=== PATIENT | female | born 1995 | race Caucasian/White ===

== ENCOUNTER → 2020-06-24 | Outpatient (CLI) | payer OTHER ==
[~2020-06-24] MED LIST: CYCLOBENZAPRINE10 MG PO; NAPROSYN500 MG PO
== END ==
LOC: LAB 12:08
DX: E28.2 Polycystic ovarian syndrome (principal)
CPT/HCPCS: 36415; 84144

== ENCOUNTER 2020-10-13 21:02 | Emergency (ER) | payer OTHER ==
[2020-10-13] MEDS ORDERED: CYCLOBENZAPRINE10 MG PO (22:10)
[2020-10-13] MEDS ORDERED: NAPROSYN500 MG PO (22:10)
== END 2020-10-13 22:16 | disposition home or self-care (01) ==
LOC: ER1 21:02
DX: M54.2 Cervicalgia (principal); F17.200 Nicotine dependence, unspecified, uncomplicated
CPT/HCPCS: 96372; 99283; J1885

== ENCOUNTER 2021-02-05 19:55 | Emergency (ER) | payer OTHER ==
[2021-02-05] MEDS ORDERED: AMOXICILLIN500 MG PO (20:42)
== END 2021-02-05 21:04 | disposition home or self-care (01) ==
LOC: ER1 19:55
DX: H66.92 Otitis media, unspecified, left ear (principal); F17.210 Nicotine dependence, cigarettes, uncomplicated
CPT/HCPCS: 99282

== ENCOUNTER 2021-03-01 08:20 | Emergency (ER) | payer OTHER ==
[~2021-03-01] VITALS: Ht 177.8 cm; Wt 104.3 kg
[~2021-03-01 08:20] MED LIST changes: +AMOXICILLIN500 MG PO
[2021-03-01 09:17] LABS: HEMOGLOBIN 16.8 gm/dl (12.3-15.3); RED BLOOD COUNT 5.58 M/UL (4.00-5.10); WHITE BLOOD COUNT 17.8 K/UL (4.5-11.0)
[2021-03-01 10:01] LABS: BUN/CREATININE RATIO 14 (0-10)
[2021-03-01] MEDS ORDERED: AUGMENTIN 875-1 EACH PO (13:04)
[2021-03-01] MEDS ORDERED: ZOFRAN ODT 4 MG4 MG SL (13:04)
== END 2021-03-01 14:07 | disposition home or self-care (01) ==
LOC: ER1 08:20 → CDU 11:54 → ER1 14:07
DX: U07.1 COVID-19 (principal); K35.80 Unspecified acute appendicitis; F17.200 Nicotine dependence, unspecified, uncomplicated
CPT/HCPCS: 80053; 81001; 83690; 84703; 85025; 96365; 96367; 96374; 96375; 99284; J0696; J1885; J2405; Q9967; U0002

== ENCOUNTER 2021-05-17 07:50 | Emergency (ER) | payer OTHER ==
[~2021-05-17 07:50] MED LIST changes: +AUGMENTIN 875-1 EACH PO; +ZOFRAN ODT 4 MG4 MG SL
[2021-05-17 08:33] LABS: HEMOGLOBIN 15.2 gm/dl (12.3-15.3); RED BLOOD COUNT 5.18 M/UL (4.00-5.10); WHITE BLOOD COUNT 9.7 K/UL (4.5-11.0)
[2021-05-17 08:56] LABS: BUN/CREATININE RATIO 12 (0-10)
[2021-05-17] MEDS ORDERED: AUGMENTIN 875-1 EACH PO (12:40)
[2021-05-17] MEDS ORDERED: HYDROCODON-ACE1 EAC4 PO (12:44)
== END 2021-05-17 13:43 | disposition home or self-care (01) ==
LOC: ER1 07:50
PROVIDERS: Nurse Practitioner
DX: K35.80 Unspecified acute appendicitis (principal); F17.290 Nicotine dependence, other tobacco product, uncomplicated
CPT/HCPCS: 80053; 81001; 82150; 83690; 84703; 85025; 96374; 96375; 99284; J1170; J2270; J2405; J2543; Q9967

== ENCOUNTER → 2021-06-23 | Day surgery (SDC) | payer OTHER ==
[~2021-06-23] MED LIST changes: +HYDROCODON-ACE1 EAC4 PO
== END | disposition home or self-care (01) ==
LOC: OR 05:40
DX: K35.80 Unspecified acute appendicitis (principal); K38.8 Other specified diseases of appendix; Z20.822 Contact with and (suspected) exposure to COVID-19; Z91.030 Bee allergy status; Z91.048 Other nonmedicinal substance allergy status
CPT/HCPCS: 84703; J0690; J1100; J1170; J1885; J2250; J2405; J2704; J2710; J3010; J7030; J7120

== ENCOUNTER 2021-11-30 17:22 | Emergency (ER) | payer OTHER | END 2021-11-30 18:01 | disposition home or self-care (01) | LOC: ER1 17:22 | DX: R11.10 Vomiting, unspecified (principal); F17.290 Nicotine dependence, other tobacco product, uncomplicated; Z20.822 Contact with and (suspected) exposure to COVID-19 | CPT/HCPCS: 99284; U0002; U0003 ==

== ENCOUNTER → 2021-12-19 | Outpatient (CLI) | payer OTHER ==
[2021-12-19 11:16] LABS: HEMOGLOBIN 15.2 gm/dl (12.3-15.3); RED BLOOD COUNT 5.25 M/UL (4.00-5.10); WHITE BLOOD COUNT 8.8 K/UL (4.5-11.0)
[2021-12-19 11:36] LABS: BUN/CREATININE RATIO 12 (0-10)
[2021-12-20 12:15] LABS: RHEUMATOID ARTHRITIS FACTOR <10.0 IU/mL (<14.0)
== END ==
LOC: LAB 10:36
PROVIDERS: Nurse Practitioner Family
DX: M54.2 Cervicalgia (principal); M25.50 Pain in unspecified joint; M79.10 Myalgia, unspecified site; E53.8 Deficiency of other specified B group vitamins; E55.9 Vitamin D deficiency, unspecified; M47.812 Spondylosis without myelopathy or radiculopathy, cervical region; Q76.49 Other congenital malformations of spine, not associated with scoliosis
CPT/HCPCS: 36415; 72040; 80053; 80061; 82550; 82607; 84439; 84443; 85025; 85652; 86140; 86200; 86431